=== PATIENT | male | born 1960 | race Hispanic/Latino ===

== ENCOUNTER 2020-05-16 16:00 | Outpatient (CLI) | payer BC | END 2020-05-16 16:01 | disposition home or self-care (01) | LOC: CTENTCT 16:00 | PROVIDERS: ATTEND Otolaryngology Plastic Surgery within the Head & Neck | DX: J32.8 Other chronic sinusitis (principal) | CPT/HCPCS: 70486 ==

== ENCOUNTER 2022-06-07 07:58 | Outpatient (CLI) | payer BC, OTHER | END 2022-06-07 07:59 | disposition home or self-care (01) | LOC: TBSIIMAG 07:58 | PROVIDERS: ATTEND Physician Assistant | DX: S22.089A Unspecified fracture of T11-T12 vertebra, initial encounter for closed fracture (principal); M47.816 Spondylosis without myelopathy or radiculopathy, lumbar region; M43.9 Deforming dorsopathy, unspecified | CPT/HCPCS: 72072; 72100 ==

== ENCOUNTER 2022-09-04 15:45 | Inpatient (IN) | payer OTHER ==
[2022-09-06 10:52] VITALS: BMI 26.9
[2022-09-07] MEDS ORDERED: Bacitracin Zinc Ointment 30 gm TUBE ONE (06:15)
[2022-09-07] MEDS ORDERED: Thrombin 5000 UNITS/5 ML VIAL ONE (06:15)
[2022-09-07] MEDS ORDERED: Vancomycin 1 GM VIAL ONE (06:15)
[2022-09-07] MEDS ORDERED: fentaNYL PF 100 MCG/2 ML SYRINGE ONE ×3 (06:28→09:51)
[2022-09-07] MEDS ORDERED: Dexmedetomidine 200 MCG/2 ML VIAL ONE (06:29)
[2022-09-07] MEDS ORDERED: Midazolam HCl 2 mg/2 ml Vial ONE (06:43)
[2022-09-07] MEDS ORDERED: Levofloxacin 500 mg/D5W 100 ml Premix Bag ONE (06:48)
[2022-09-07] MEDS ORDERED: Clindamycin/D5W 900 mg/50 ml Premix Bag ONE (06:51)
[2022-09-07] MEDS ORDERED: Ondansetron PF 4 MG/2 ML Vial ONE (07:00)
[2022-09-07] MEDS ORDERED: Dexamethasone 20 MG/5 ML VIAL ONE (07:00)
[2022-09-07] MEDS ORDERED: Esmolol 100 MG/10 ML VIAL ONE (07:00)
[2022-09-07] MEDS ORDERED: Rocuronium Bromide 10 MG/ML (10ML VIAL) ONE (07:00)
[2022-09-07] MEDS ORDERED: Lidocaine 1% PF 5 ML VIAL ONE (07:00)
[2022-09-07] MEDS ORDERED: PROPOFOL 200 MG/20 ML VIAL ONE (07:00)
[2022-09-07 07:16] LABS: SARS-CoV-2 NAA Rapid Test Not Detected (NotDetected)
[2022-09-07] MEDS ORDERED: SUGAMMADEX SODIUM 200 MG/2 ML VIAL ONE (08:52)
[2022-09-07] MEDS ORDERED: Tamsulosin HCl 0.4 MG CAP ONE (09:25)
== END 2022-09-07 11:20 | disposition home or self-care (01) | DRG 472 ==
LOC: SURG A 09-07 05:32
PROVIDERS: ADMIT Neurological Surgery; ATTEND Neurological Surgery
PROC: 0RG20A0 Fusion of 2 or more Cervical Vertebral Joints with Interbody Fusion Device, Anterior Approach, Anterior Column, Open Approach (ICD-10-PCS; principal; 2022-09-07)
PROC: 0RB30ZZ Excision of Cervical Vertebral Disc, Open Approach (ICD-10-PCS; 2022-09-07)
PROC: 01N10ZZ Release Cervical Nerve, Open Approach (ICD-10-PCS; 2022-09-07)
PROC: 00NW0ZZ Release Cervical Spinal Cord, Open Approach (ICD-10-PCS; 2022-09-07)
DX: M48.02 Spinal stenosis, cervical region (principal); M47.12 Other spondylosis with myelopathy, cervical region; S22.9XXA Fracture of bony thorax, part unspecified, initial encounter for closed fracture; M47.22 Other spondylosis with radiculopathy, cervical region; Z90.49 Acquired absence of other specified parts of digestive tract; Z98.890 Other specified postprocedural states; Z88.0 Allergy status to penicillin; Z79.899 Other long term (current) drug therapy; Z20.822 Contact with and (suspected) exposure to COVID-19
CPT/HCPCS: C1713; C1768; C1889; J1100; J1956; J2250; J2405; J2704; J3370; J3490; U0002